=== PATIENT | female | born 1965 | race Caucasian/White ===

== ENCOUNTER 2017-07-08 15:43 | Day surgery (SDC) | payer BC ==
[~2017-07-08] VITALS: Ht 162.6 cm; Wt 59.5 kg
[~2017-07-08 15:43] MED LIST: DEXT5TAB17 PO; LAMO200T PO; VENL75CA PO
[2017-07-08 16:02] VITALS: BP 123/83
[2017-07-08] MEDS ORDERED: LACTATED RINGERS 1,000 ML IV SCH (16:05)
[2017-07-08] MEDS ORDERED: FENTANYL PF 100 MCG/2ML ONE ×2 (16:39→18:53)
[2017-07-08] MEDS ORDERED: MIDAZOLAM 1 MG/ML, 2ML ONE (16:39)
[2017-07-08] MEDS ORDERED: ROCURONIUM 10 MG/ML,10ML ONE (16:48)
[2017-07-08] MEDS ORDERED: ONDANSETRON 2MG/ML, 2ML ONE ×2 (16:48→19:00)
[2017-07-08] MEDS ORDERED: PROPOFOL 10 MG/ML, 20ML ONE (16:48)
[2017-07-08] MEDS ORDERED: SUCCINYLCHOLINE 20 MG/ML, 10ML ONE (16:48)
[2017-07-08] MEDS ORDERED: CEFAZOLIN 1,000 MG ONE (16:48)
[2017-07-08] MEDS ORDERED: DEXAMETHASONE 4 MG/ML, 1ML ONE (16:48)
[2017-07-08] MEDS ORDERED: BUPIVACAINE/PF 0.5% INJ ONE (17:06)
[2017-07-08] MEDS ORDERED: BUPIVACAINE/PF 0.5% ONE (17:12)
[2017-07-08] MEDS ORDERED: ACETAMINOPHEN 650 MG/20.3 ML UDC ONE (18:52)
[2017-07-08] MEDS ORDERED: OXYcodone 5 MG/5 ML ORAL.SOL UDC ONE (18:53)
[2017-07-08] MEDS ORDERED: HYDROmorphone 2 MG/ML, 1ML ONE (18:53)
[2017-07-08] MEDS: FENTANYL PF 100 MCG/2ML IV PRN ×2 (18:56→19:27)
[2017-07-08] MEDS ORDERED: ONDANSETRON 2MG/ML, 2ML IVPush PRN (19:00)
[2017-07-08] MEDS ORDERED: OXYcodone 5 MG/5 ML ORAL.SOL UDC PO PRN (19:00)
[2017-07-08] MEDS ORDERED: ACETAMINOPHEN 325 MG TABLET PO PRN (19:00)
[2017-07-08] MEDS ORDERED: HYDROmorphone 1 MG/ML, 1ML IV PRN (19:00)
[2017-07-08 19:50] VITALS: BP 121/75
[2017-07-08] MEDS ORDERED: KETOROLAC 30 MG/1 ML ONE (20:42)
[2017-07-08] MEDS ORDERED: HYDROcodone/APAP 5/325 TABLET ONE (20:43)
[2017-07-08] MEDS ORDERED: HYDROcodone/APAP 5/325 TABLET PO PRN (21:00)
[2017-07-08] MEDS ORDERED: PROMETHAZINE 25 MG/ML, 1ML IM PRN (21:00)
[2017-07-08] MEDS ORDERED: ONDANSETRON 2MG/ML, 2ML IV PRN (21:00)
[2017-07-08] MEDS ORDERED: KETOROLAC 30 MG/1 ML IV SCH (21:00)
[2017-07-08] MEDS ORDERED: morphine SULFATE 10 MG/ML, 1ML IV PRN (21:00)
[2017-07-09] MEDS ORDERED: ADDERALL 5 MG HOMEMEDPO SCH (09:00)
[2017-07-09] MEDS ORDERED: VENLAFAXINE XR 37.5MG CAP.ER.24H PO SCH (09:00)
[2017-07-09] MEDS ORDERED: LAMOTRIGINE 100 MG TABLET PO SCH (09:00)
== END 2017-07-08 21:43 | disposition home or self-care (01) ==
LOC: SDC 15:43 → EDSTATUS 17:30 → 4NOR 19:47 → SDC 21:43
PROVIDERS: ATTEND Orthopaedic Surgery
DX: S52.571A Other intraarticular fracture of lower end of right radius, initial encounter for closed fracture (principal); M65.331 Trigger finger, right middle finger; X58.XXXA Exposure to other specified factors, initial encounter; Y93.89 Activity, other specified; Y92.89 Other specified places as the place of occurrence of the external cause; Y99.8 Other external cause status
CPT/HCPCS: 25608; 26055; 73100; 76001; C1713; C1762; J0330; J0690; J1100; J2250; J2405; J2704; J3010; J3490